=== PATIENT | female | born 1965 | race Caucasian/White ===

== ENCOUNTER 2018-10-19 17:30 | Emergency (ER) | payer OTHER, MEDICAID, SELFPAY ==
[2018-10-19 17:34] VITALS: BP 148/92; PULSE 89; RESP 19; TEMP 36.7; O2SAT 98
[2018-10-19] MEDS: IBUPROFEN 400 MG TABLET 800 MG PO (17:41)
[2018-10-19] MEDS: ACETAMINOPHEN 325 MG TABLET 975 MG PO (17:41)
--- NOTE | 2018-10-19 17:45 | DI.RAD.S_ITS ---
PROCEDURE: XR HIP W PEL IF DONE LT 2V INDICATIONS: atraumatic pain TECHNIQUE: 2 views of the hip were acquired. COMPARISON: None. FINDINGS: Bones: No fractures or dislocations. No suspicious bony lesions. The visualized pelvic ring appears intact. Minimal degenerative narrowing of the hips bilaterally. Soft tissues: No suspicious soft tissue calcifications or masses. There is a metallic density overlying the medial aspect of the left acetabulum. IMPRESSION: 1. Mild degenerative changes. 2. Metallic density appearing similar to a hair clip, overlying the left acetabulum suspected to be superficial to the patient. However, technologist notes that it was not able to be identified. Recommend correlation of potential ingested foreign body and/or short interval imaging x-ray followup. Dictated by: Madonna Willingham M.D. on 10/19/2018 at 18:43 Approved by: Madonna Willingham M.D. on 10/19/2018 at 18:44
--- NOTE | 2018-10-19 20:01 | ED_ITS ---
HPI - Extremity Problem <KAREN BurgessP - Last Filed: 10/19/18 22:30> General Chief complaint: Extremity Problem,Nontraumatic Stated complaint: Hip is out, in a lot of pain Time Seen by Provider: 10/19/18 18:13 Source: patient Mode of arrival: ambulatory Limitations: no limitations History of Present Illness HPI Narrative: This is a 53-year-old female, nonsmoker, who presents with non- traumatic left groin and hip pain for last 3 days. She reports pain aggravates with movements or walking. She reports she has had left-sided low back pain for 2 weeks which radiated to upper and lower of her lower back. She has been seeing chiropractor for adjustments, she was told her hip is out of place and referred to ED for an evaluation today. She has been walking with limping gait due to increasing pain with ambulation. She denies incontinence, weakness to extremities. She reports mild tingling and numbness when she stands too long. She reports her low back pain is now localized without radiation. She denies urinary symptoms including urgency, frequency, dysuria. She denies fever, chills, nausea, vomiting, redness or warmth to her back. Related Data Allergies Allergy/AdvReac Type Severity Reaction Status Date / Time No Known Drug Allergies Allergy Verified 10/19/18 17:37 Review of Systems <KAREN BurgessP - Last Filed: 10/19/18 22:30> Review of Systems General: Denies fever, chills, fatigue, malaise, sweats. HEENT: Denies sinus pain, ear pain, sore throat, difficulty swallowing, dizziness. Respiratory: Denies dyspnea, cough, wheezing, hemoptysis, sputum. Cardiovascular: Denies chest pain, palpitations, orthopnea, edema. Gastrointestinal: Denies nausea, vomiting, abdominal pain, diarrhea, constipation, melena. : Denies dysuria, frequency, incontinence, hematuria, urinary retention. Musculoskeletal: See HPI Skin: Denies rash, skin lesions, or other. Neurologic: Denies weakness, headache, numbness, change in speech, confusion, seizures, incoordination. Psychiatric: No concerning psychosocial issues. 12-point review of systems is negative except for those stated above. PFSH <KAREN BurgessP - Last Filed: 10/19/18 22:30> Medical History Migraine headache (Chronic) History of CHF (congestive heart failure) (Resolved) Surgical History History of 3 sections (Chronic) Hx of breast reduction, elective (Resolved) Social History Smoking Status: Never smoker Social History Smoking Status: Never smoker Exam <BONILLA Burgess - Last Filed: 10/19/18 22:30> Narrative Exam Narrative: General appearance: well developed, well nourished, in no acute distress. Head: normocephalic, atraumatic, no scalp lesions, non-tender. Eye: pupil equal, round. EOMI. Nose: nares patent. Oral: mucosa moist. Neck/Thyroid: neck supple, full range of motion, no visible masses. Skin: no suspicious rashes, lesions over visible areas. Warm and dry. Heart: no clubbing, no cyanosis, no edema. Lungs: Breathing even and unlabored. No stridor. No accessory muscles used. Chest: normal shape and expansion. Abdomen: non-obese, non-distended. Neurologic: alert and oriented. Cognitive exam, [employer] and PNS grossly intact on informal exam. Psych: good eye contact, normal affect. Initial Vital Signs Initial Vital Signs: Vital Signs Temperature 98.1 F 10/19/18 17:34 Pulse Rate 89 10/19/18 17:34 Respiratory Rate 19 10/19/18 17:34 Blood Pressure 148/92 H 10/19/18 17:34 Pulse Oximetry 98 10/19/18 17:34 Back/Spine/Pelvis Back: normal to inspection Cervical Spine: normal cervical lordosis and cervical ROM normal Thoracic/Lumbar Spine: thoracic and lumbar spine normal to inspection, paraspinal tenderness (L side), No thoraco-lumbar spasm and straight leg raise positive Sacroiliac Joints: tender to palpation, No pain elicited by compression of iliac crest maneuver and pain elicited by passive hyperextension of lower extremity Sacrum: no ecchymosis, no erythema, no swelling and tenderness (with movement, ambulation) on the left Other: Bilateral patella 2+ reflex <Milton Lawson DO - Last Filed: 10/20/18 05:10> Initial Vital Signs Initial Vital Signs: Vital Signs Temperature 98.1 F 10/19/18 17:34 Pulse Rate 89 10/19/18 17:34 Respiratory Rate 19 10/19/18 17:34 Blood Pressure 148/92 H 10/19/18 17:34 Pulse Oximetry 98 10/19/18 17:34 Procedures <BONILLA Burgess - Last Filed: 10/19/18 22:30> Orthopedic Splinting/Casting Injury #1: Side: left Other Orthopedic Equipment: cane Additional Comments: No splint has applied for L groin pain. Course <BONILLA Burgess - Last Filed: 10/19/18 22:30> Orders Ordered: ED Orders 10/19/18 20:37 Urine Culture Stat Urine Microscopic Stat Discontinued Medications Acetaminophen (Tylenol) 975 mg PO NOW ONE Stop: 10/19/18 17:38 Last Admin: 10/19/18 17:41 Dose: 975 mg Cyclobenzaprine HCl (Flexeril) 10 mg PO NOW ONE Stop: 10/19/18 20:02 Last Admin: 10/19/18 20:12 Dose: 10 mg Cyclobenzaprine HCl (Flexeril 10 Mg Prepack) 1 bottle MISC SEEINSTR ONE Stop: 10/19/18 20:50 Last Admin: 10/19/18 21:04 Dose: 1 bottle Ibuprofen (Advil) 800 mg PO NOW ONE Stop: 10/19/18 17:38 Last Admin: 10/19/18 17:41 Dose: 800 mg Vital Signs - 8 hr 10/19/18 21:25 Pulse Rate 86 Respiratory Rate 16 Blood Pressure [Left Arm] 156/75 H <Milton Lawson DO - Last Filed: 10/20/18 05:10> Orders Ordered: ED Orders 10/19/18 20:37 Urine Culture Stat Urine Microscopic Stat Discontinued Medications Acetaminophen (Tylenol) 975 mg PO NOW ONE Stop: 10/19/18 17:38 Last Admin: 10/19/18 17:41 Dose: 975 mg Cyclobenzaprine HCl (Flexeril) 10 mg PO NOW ONE Stop: 10/19/18 20:02 Last Admin: 10/19/18 20:12 Dose: 10 mg Cyclobenzaprine HCl (Flexeril 10 Mg Prepack) 1 bottle MISC SEEINSTR ONE Stop: 10/19/18 20:50 Last Admin: 10/19/18 21:04 Dose: 1 bottle Ibuprofen (Advil) 800 mg PO NOW ONE Stop: 10/19/18 17:38 Last Admin: 10/19/18 17:41 Dose: 800 mg Vital Signs - 8 hr 10/19/18 21:25 Pulse Rate 86 Respiratory Rate 16 Blood Pressure [Left Arm] 156/75 H MDM - Extremity (Nontraumatic) <Oscar Ellison-BONILLA Rodas - Last Filed: 10/19/18 22:30> Differential Diagnosis Likely other (groin strain, sciatica) Medical Records Attestation: I reviewed the patient's medical records. Lab Data Lab Results 10/19/18 Range/Units 20:37 Urine RBC None seen (0-5/HPF) Urine WBC 1-5/hpf (0-5/HPF) Ur Squamous Epith Cells 1-5 /hpf (0-5/HPF) Urine Bacteria Few (2-10) H (None) Ur Culture Indicated? Specimen cultured Urine Dip Bedside Urine Glucose Negative Bedside Urine Bilirubin + 1 Bedside Urine Ketone +/- 5 Urine Specific [place] 1.020 Bedside Urine Occult Blood - Negative Bedside Urine pH 6.5 Bedside Urine Protein +/- 15 Bedside Urine Urobilinogen +/- 1mg Bedside Urine Nitrite - Negative Bedside Urine Leukocytes +++ 500 Esterase Imaging Data XR-Hip L: Radiologist's impression: Mike Tatearia Saldana 53 F 1965 [place] [address] XRay Report Signed Patient: Carolina Tate Jo MMR#: [id number] : 1965Acct:[id number] Age/Sex: 53 / FDate of Service: 10/19/18 Loc: ED Accession Number: [id number] Procedure: XR hip w pel if done LT 2V Ordering Provider: Virgen Richey MD PROCEDURE: XR HIP W PEL IF DONE LT 2V INDICATIONS: atraumatic pain TECHNIQUE: 2 views of the hip were acquired. COMPARISON: None. FINDINGS: Bones: No fractures or dislocations. No suspicious bony lesions. The visualized pelvic ring appears intact. Minimal degenerative narrowing of the hips bilaterally. Soft tissues: No suspicious soft tissue calcifications or masses. There is a metallic density overlying the medial aspect of the left acetabulum. IMPRESSION: 1. Mild degenerative changes. 2. Metallic density appearing similar to a hair clip, overlying the left acetabulum suspected to be superficial to the patient. However, technologist notes that it was not able to be identified. Recommend correlation of potential ingested foreign body and/or short interval imaging x-ray followup. Dictated by: Madonna Willingham M.D. on 10/19/2018 at 18:43 Approved by: Madonna Willingham M.D. on 10/19/2018 at 18:44 [facility] Narrative Medical decision making narrative: This is a 53-year-old female who presents with nontraumatic left groin pain for last 3 days. She reports pain increases with ambulation or movement. She has been limping with dilation for last couple of weeks due to the low back pain she has been having. Her neurovascular exam was normal. Her lower leg extremity strength was bilaterally intact. There was no obvious deformity, edema, redness to left groin or leg. X-ray test was done on left hip which shows no acute findings. She was medicated with Tylenol and Motrin at triage. She also received additional Flexeril after she was ev aluated. She reports her pain has improved. She was provided with a cane to help with ambulation. We discussed return precautions at length. Her urine test shows leukoesterase, no blood per POC test. Micro urine test shows few bacteria and is being cultured at this time. She did not endorse urinary symptoms at this time. Patient was informed that she will be contacted if she needs antibiotic treatment for this. She was discharged to home with prepack Flexeril. She verbalized understanding and agrees with the treatment plan. <Milton Lawson, DO - Last Filed: 10/20/18 05:10> Lab Data Lab Results 10/19/18 Range/Units 20:37 Urine RBC None seen (0-5/HPF) Urine WBC 1-5/hpf (0-5/HPF) Ur Squamous Epith Cells 1-5 /hpf (0-5/HPF) Urine Bacteria Few (2-10) H (None) Ur Culture Indicated? Specimen cultured Urine Dip Bedside Urine Glucose Negative Bedside Urine Bilirubin + 1 Bedside Urine Ketone +/- 5 Urine Specific [place] 1.020 Bedside Urine Occult Blood - Negative Bedside Urine pH 6.5 Bedside Urine Protein +/- 15 Bedside Urine Urobilinogen +/- 1mg Bedside Urine Nitrite - Negative Bedside Urine Leukocytes +++ 500 Esterase Discharge Plan Departure Patient Disposition: Home Clinical Impression: Groin strain Qualifiers: Encounter type: initial encounter Laterality: left Qualified Code(s): S76.212A - Strain of adductor muscle, fascia and tendon of left thigh, initial encounter Sciatica Qualifiers: Laterality: left Qualified Code(s): M54.32 - Sciatica, left side Discharge Date/Time: 10/19/18 22:05 Interventions: ED Discharge Assessment Last Done: 10/19/18 22:05 Instructions: DI for Sciatica, DI for Groin Strain Activity Restrictions/Additional Instructions: You have been diagnosed with [groin strain, sciatica]. X-ray test shows no acute findings such as fractures. You are provided with a cane for ambulation support for acute pain in her groin area. Your urine test shows a few bacteria and it is being cultured at this time. It shows possible suspicion for infection. You will get a phone call if you need a treatment with antibiotic medication. What to do: *Take your medications as directed. He can take [id number] Tylenol and or Motrin for pain and inflammation. Please take Flexeril for muscle relaxant as needed. This may cause drowsiness so please take precaution. Do not drive, drink alcohol, or operate heavy equipments. *Follow up with your primary care provider in 2-3 days, call for an appointment. Let them know you were seen in the ED and that we asked you to be seen in follow up. *Return to ED if you have any new, worsening, or concerning symptoms, such as [worsening pain, tingling numbness, incontinence, weakness to leans, chest pain, breathing difficulty, any acute findings]. Referrals: Kayode Arriaza MD [Primary Care Provider] - <Milton Lawson DO - Last Filed: 10/20/18 05:10> [facility] ED Attending Aye Attestation: I was immediately available in the department for consultation. Documentation has been reviewed. I agree with assessment and plan.
[2018-10-19] MEDS: CYCLOBENZAPRINE 10 MG TABLET PO (20:12)
[2018-10-19] MEDS: CYCLOBENZAPRINE 10 MG PREPACK 1 BOTTLE MISC (21:04)
[2018-10-19 21:25] VITALS: BP 156/75; PULSE 86; RESP 16
[2018-10-22 08:37] LABS: Bacteria Urine Many (>30); RBC Urine 0-1/HPF (0-5/HPF); Squamous Epithelial Cell Urine 1-5 /HPF (0-5/HPF); WBC Urine 1-5/HPF (0-5/HPF)
[2018-10-22 08:38] LABS: Calcium Oxalate Crystals Urine Few
== END 2018-10-19 22:05 | disposition home or self-care (01) ==
PROVIDERS: Emergency Provider Nurse Practitioner Family; PCP Family Medicine
DX: S76.212A Strain of adductor muscle, fascia and tendon of left thigh, initial encounter (principal); M54.32 Sciatica, left side
CPT/HCPCS: 73502; 81003; 81015; 87077; 87086; 99282; 99284

== ENCOUNTER 2019-04-14 11:10 | Emergency (ER) | payer OTHER, MEDICAID, SELFPAY ==
[2019-04-14] VITALS (7 sets, daily range): BP systolic 123–132; BP diastolic 69–82; PULSE 78–96; RESP 14–22; TEMP 36.7; O2SAT 98–100
--- NOTE | 2019-04-14 12:10 | DI.RAD.S_ITS ---
PROCEDURE: XR CHEST 2V INDICATIONS: chest pain, SOB TECHNIQUE: 2 views of the chest were acquired. COMPARISON: None. FINDINGS: Surgical changes and devices: None. Lungs and pleura: Lungs are clear. No pleural effusions or pneumothorax. Mediastinum: Mediastinal contours are normal. Heart size is normal. Bones and chest wall: No suspicious bony abnormalities. Soft tissues appear unremarkable. IMPRESSION: No evidence acute pulmonary process. Dictated by: Chao Centeno M.D. on 04/14/2019 at 12:56 Approved by: Chao Centeno M.D. on 04/14/2019 at 12:57
[2019-04-14 12:18] LABS: Add Manual Diff / Slide Review NO; Basophils Absolute Auto 200 /uL (0-100); Basophils Percent Auto 0.8 % (0-2); Eosinophils Absolute Auto 200 /uL (0-450); Eosinophils Percent Auto 0.7 % (2-4); Hematocrit 33.5 % (36-46); Hemoglobin 10.3 g/dL (12.0-16.0); Lymphocytes Absolute Auto 6500 /uL (1100-4500); Mean Corpuscular HGB Conc 30.8 % (30-36); Mean Corpuscular Hemoglobin 20.1 PG (26-34); Mean Corpuscular Volume 65.2 fL (80-100); Monocytes Absolute Auto 2000 /uL (0-900); Neutrophils Absolute Auto 16300 /uL (1500-7000); Neutrophils Percent Auto 64.5 % (50-75); Platelet Count 509 X10^3/uL (150-400); Red Blood Cell Count 5.14 X10^6/uL (4.0-5.2); Red Cell Distribution Width 18.5 % (11.6-14.8); White Blood Cell Count 25.2 X10^3/uL (4.5-11.0)
[2019-04-14 12:23] LABS: Creatine Kinase 45 U/L (30-135)
[2019-04-14 12:24] LABS: Alanine Aminotransferase 28 IU/L (<35); Albumin Globulin Ratio 1.1 (1.0-2.8); Alkaline Phosphatase 88 U/L (38-126); Aspartate Aminotransferase 25 IU/L (14-36); Bilirubin Total 0.3 mg/dL (0.2-1.3); Blood Urea Nitrogen 20 mg/dL (7-17); Calcium 9.5 mg/dL (8.4-10.2); Carbon Dioxide 26 mmol/L (22-32); Chloride 100 mmol/L (98-107); Estimated Glomerular Filt Rate > 60.0 mL/min (>60); Globulin 3.7 g/dL (1.7-4.1); Glucose 97 mg/dL (70-100); HEMOLYSIS < 15 (0-50); Potassium 3.8 mmol/L (3.4-5.1); Sodium 138 mmol/L (137-145); Total Protein 7.7 g/dL (6.3-8.2)
[2019-04-14 12:29] LABS: D Dimer 279 ng/mL (<230)
[2019-04-14 12:36] LABS: NT-proBNP (BNP-Adult 18+) 108 pg/mL (<125); Troponin I < 0.012 ng/mL (0.01-0.034)
[2019-04-14 12:43] LABS: Hypochromasia 2+; Microcytosis 3+; Poikilocytosis 1+
[2019-04-14] MEDS: ALBUTEROL/IPRATROPIUM 3 ML AMPUL INH (12:47)
[2019-04-14 14:00] LABS: Procalcitonin < 0.05 ng/mL (<0.5)
[2019-04-14 14:15] LABS: Lactate (Lactic Acid) 1.9 mmol/L (0.7-2.1)
--- NOTE | 2019-04-14 14:22 | ED_ITS ---
HPI - Chest Pain <BONILLA Burgess - Last Filed: 04/15/19 00:01> General Chief Complaint: Chest Pain Stated Complaint: CHEST IS HURTING CAN HARDLY WALK CHEST TIGHT Time Seen by Provider: 04/14/19 11:54 Source: patient and family Mode of arrival: Ambulatory Limitations: no limitations History of Present Illness HPI narrative: This is a 54-year-old female, nonsmoker, who has history of asthma presents to ED with significant other with chief complain of worsening cough, exertional short of breath, fatigue, chest tightness and dizziness since this has started about 4 weeks ago. Reports was diagnosed with bronchitis and pneumonia 4 weeks ago and was prescribed doxycycline b.i.d. dose for 10 day course with steroids. She has been using her albuterol nebulizer and inhaler for short of breath. Patient reports she was not feeling improved and visited [facility] ER 5 days ago and was prescribed another course of antibiotic medication Keflex 500 mg t.i.d. dose for 7 days and Decadron p.o. for 7 day course daily. Patient has been using frequently nebulizer treatment and rescue inhaler at home for her symptoms. Patient has been very tired, exhausted and weak that she had to take several breaks while even trying to dry her hair several times and improves with rest. Patient's spouse reports patient has difficulty completing long sentences due to short of breath. Patient states she has history of CHF after she gave to her son 11 years ago but this has resolved last 7 years. Patient reports her discomfort in mid chest which radiates to right shoulder. Her cough has been productive when she wakes up in the morning. She denies nausea, vomiting, diarrhea and reports subjective fever and chills. Patient denies recent weight gain, or leg swellings, recent prolonged travel. She is not currently on HRT. Spouse reports patient's younger brother from heart failure at young age. Related Data Previous Rx's Medication Instructions Recorded ferrous sulfate [FeroSul] 325 mg PO DAILY #30 tab 04/14/19 ipratropium bromide 2.5 ml INHALATION TID PRN #75 ml 04/14/19 Allergies Allergy/AdvReac Type Severity Reaction Status Date / Time No Known Drug Allergies Allergy Verified 10/19/18 17:37 Review of Systems <BONILLA Burgess - Last Filed: 04/15/19 00:01> Review of Systems Narrative: General: Denies (+) subjective fever, (+) chills, (+) fatigue, malaise, (+) sweats. HEENT: Denies sinus pain, ear pain, sore throat, difficulty swallowing, dizziness. Respiratory: See HPI Cardiovascular: Denies (+) chest pain, palpitations, orthopnea, edema. Gastrointestinal: Denies nausea, vomiting, abdominal pain, diarrhea, constip ation, melena. : Denies dysuria, frequency, incontinence, hematuria, urinary retention. Musculoskeletal: Denies weakness, joint pain or bony pain. Skin: Denies rash, skin lesions, or other. Neurologic: Denies (+) weakness, headache, numbness, change in speech, confusion, seizures, incoordination. Psychiatric: No concerning psychosocial issues. 12-point review of systems is negative except for those stated above. Patient History <BONILLA Burgess - Last Filed: 04/15/19 00:01> Medical History History of CHF (congestive heart failure) (Resolved) Migraine headache (Chronic) Surgical History History of 3 sections (Chronic) History of section (Acute) History of nasal surgery (Acute) Hx of breast reduction, elective (Resolved) Status post breast reduction (Acute) Social History Smoking Status: Never smoker Smoking Status: Never smoker alcohol intake frequency: 0-2 drinks per day Substance Use Type: does not use Exam <BONILLA Burgess - Last Filed: 04/15/19 00:01> Narrative Exam Narrative: GEN: Alert, oriented x 3, well appearing and nourished, and in no acute distress. Head: Normal cephalic, atraumatic. No scalp or temporal tenderness, palpable mass or rash. EYES: Pupils are equal, round, and reactive to light and accommodation. Extraocular muscles are intact bilaterally. There is no subconjunctival hemorrhage, exudate and sclera non-icteric. ENT: Bilateral auditory canals and tympanic membranes clear. Hearing grossly intact. Nose without bleeding, purulent discharge or deviation. Facial sinuses nontender to palpate. Mucous membrane moist, no mucosal lesion. Throat without erythema, tonsillar hypertrophy or exudate. Uvula in midline, airway patent. Neck: Trachea in midline. No JVD, non-tender without lymphadenopathy. No masses or thyroid megaly. Supple, non-tender and no meningeal signs. CARDIAC: Normal regular rate and rhythm without murmurs, gallops, or rubs. No chest wall tenderness. No peripheral edema, cyanosis or pallor. Capillary refill is less than 2 seconds. RESPIRATORY: Lungs are clear to auscultate bilaterally. No cough, wheezes, r ales, or rhonchi. No stridor, respiratory distress, increase work of breathing, or accessary muscle used. ABD: Abdomen soft, nontender and non-distended. No guarding or rebound tenderness to palpate. Bowel sounds are normal in all 4 quadrants. There is no palpable masses or organomegaly. EXT: Full painless ROM of all extremities with no loss of sensation, strength, effusion or edema. SKIN: Warm, dry, normal color for patient. No erythema, lesions or rash over visible areas. BACK: Nontender without deformity or crepitance. No flank tenderness. NEUROLOGICAL: Alert and oriented to place, time and person. Sensation and motor function intact bilaterally. No facial droops, dysphasia. PSYCHIATRIC: Good judgement and reason, without hallucinations, abnormal affect or abnormal behaviors during the examination. Initial Vital Signs Initial Vital Signs: Vital Signs Temperature 98.1 F 04/14/19 11:30 Pulse Rate 88 04/14/19 11:30 Respiratory Rate 22 04/14/19 11:30 Blood Pressure 132/75 04/14/19 11:30 Pulse Oximetry 98 04/14/19 11:30 <Odette Ball DO - Last Filed: 04/15/19 14:38> Initial Vital Signs Initial Vital Signs: Vital Signs Temperature 98.1 F 04/14/19 11:30 Pulse Rate 88 04/14/19 11:30 Respiratory Rate 22 04/14/19 11:30 Blood Pressure 132/75 04/14/19 11:30 Pulse Oximetry 98 04/14/19 11:30 Scores <Oscar Terra-BONILLA Rodas - Last Filed: 04/15/19 00:01> GCS Janet coma scale eye opening: Spontaneous Forney coma scale verbal response: Orientated Janet coma scale motor response: Obey commands Forney coma scale total score: 15 HEART Score Heart Score history: Slightly Suspicious Heart Score EKG: Normal Heart Score Age: 45-64 years old Heart Score risk factors: 1-2 risk factors Heart Score troponin: < or = to normal limit Heart Score Total: 2 PERC Score Age greater than or equal to 50 years: Yes Heart rate greater than or equal to 100 bpm: No Room Air O2 Sat less than 95%: No Unilateral leg swelling: No Recent trauma or surgery: No Hemoptysis: No Prior PE or DVT: No Hormone Use: No Total PERC Score: 1 Course <BONILLA Burgess - Last Filed: 04/15/19 00:01> Orders Ordered: Discontinued Medications Albuterol/Ipratropium (Duoneb) 3 ml INH NOW ONE Stop: 04/14/19 12:10 Last Admin: 04/14/19 12:47 Dose: 3 ml Documented by: GENA Ketorolac Tromethamine (Toradol) 30 mg IV NOW ONE Stop: 04/14/19 14:29 Last Admin: 04/14/19 15:00 Dose: Not Given Documented by: KDCHRISTINA Vital Signs Vital signs: Vital Signs - 8 hr 04/14/19 11:30 04/14/19 12:01 04/14/19 12:30 Temperature 98.1 F 98.1 F Pulse Rate 88 88 88 Respiratory Rate 22 22 18 Blood Pressure [Left Arm] 132/75 124/76 Pulse Oximetry 98 98 99 04/14/19 12:47 04/14/19 12:58 04/14/19 13:00 Temperature Pulse Rate 78 80 85 Respiratory Rate 14 18 19 Blood Pressure [Left Arm] 123/69 130/72 Pulse Oximetry 98 98 100 <Odette Ball DO - Last Filed: 04/15/19 14:38> Orders Ordered: Discontinued Medications Albuterol/Ipratropium (Duoneb) 3 ml INH NOW ONE Stop: 04/14/19 12:10 Last Admin: 04/14/19 12:47 Dose: 3 ml Documented by: GENA Ketorolac Tromethamine (Toradol) 30 mg IV NOW ONE Stop: 04/14/19 14:29 Last Admin: 04/14/19 15:00 Dose: Not Given Documented by: HILARIA Vital Signs Vital signs: Vital Signs - 8 hr 04/14/19 11:30 04/14/19 12:01 04/14/19 12:30 Temperature 98.1 F 98.1 F Pulse Rate 88 88 88 Respiratory Rate 22 22 18 Blood Pressure [Left Arm] 132/75 124/76 Pulse Oximetry 98 98 99 04/14/19 12:47 04/14/19 12:58 04/14/19 13:00 Temperature Pulse Rate 78 80 85 Respiratory Rate 14 18 19 Blood Pressure [Left Arm] 123/69 130/72 Pulse Oximetry 98 98 100 MDM - Chest Pain <Oscar BONILLA Elmore - Last Filed: 04/15/19 00:01> Differential Diagnosis Differential diagnosis: Likely atypical chest pain, costochondritis and other (Bronchitis, pneumonia, pneumothorax, heart failure, pulmonary embolism) Medical Records Data Attestation: I reviewed the patient's medical records. Lab Data Attestation: I reviewed the patient's lab results. Result diagrams: 04/14/19 11:58 04/14/19 11:58 Labs: Lab Results 04/14/19 04/14/19 04/14/19 Range/Units 11:58 11:58 11:58 WBC 25.2 H (4.5-11.0) X10^3/uL RBC 5.14 (4.0-5.2) X10^6/uL Hgb 10.3 L (12.0-16.0) g/dL Hct 33.5 L (36-46) % MCV 65.2 L (80-100) fL MCH 20.1 L (26-34) PG MCHC 30.8 (30-36) % RDW 18.5 H (11.6-14.8) % Plt Count 509 H (150-400) X10^3/uL Neut % (Auto) 64.5 (50-75) % Lymph % (Auto) 26.0 (25-40) % Gooding % (Auto) 8.0 (3-14) % Eos % (Auto) 0.7 L (2-4) % Baso % (Auto) 0.8 (0-2) % Neut # (Auto) 41562 H (1661-1725) /uL Lymph # (Auto) 6500 H (5900-8821) /uL Gooding # (Auto) 2000 H (0-900) /uL Eos # (Auto) 200 (0-450) /uL Baso # (Auto) 200 H (0-100) /uL RBC Morphology Not Reportable Hypochromasia 2+ H Poikilocytosis 1+ H Microcytosis 3+ H D-Dimer 279 H (<230) ng/mL Sodium (137-145) mmol/L Potassium (3.4-5.1) mmol/L Chloride (98-107) mmol/L Carbon Dioxide (22-32) mmol/L BUN (7-17) mg/dL Creatinine (0.52-1.04) mg/dL Estimated GFR (>60) mL/min BUN/Creatinine Ratio (6-22) Glucose (70-100) mg/dL Lactate (0.7-2.1) mmol/L Calcium (8.4-10.2) mg/dL Magnesium 2.0 (1.6-2.3) mg/dL Total Bilirubin (0.2-1.3) mg/dL AST (14-36) IU/L ALT (<35) IU/L Alkaline Phosphatase (38-126) U/L Total Creatine Kinase 45 (30-135) U/L CK-MB (CK-2) TNP CK-MB (CK-2) Rel Index TNP Troponin I < 0.012 (0.01-0.034) ng/mL NT-Pro-B Natriuret Pep 108 (<125) pg/mL Total Protein (6.3-8.2) g/dL Albumin (3.5-5.0) g/dL Globulin (1.7-4.1) g/dL Albumin/Globulin Ratio (1.0-2.8) Procalcitonin (<0.5) ng/mL 04/14/19 04/14/19 04/14/19 Range/Units 11:58 11:58 13:58 WBC (4.5-11.0) X10^3/uL RBC (4.0-5.2) X10^6/uL Hgb (12.0-16.0) g/dL Hct (36-46) % MCV (80-100) fL MCH (26-34) PG MCHC (30-36) % RDW (11.6-14.8) % Plt Count (150-400) X10^3/uL Neut % (Auto) (50-75) % Lymph % (Auto) (25-40) % Gooding % (Auto) (3-14) % Eos % (Auto) (2-4) % Baso % (Auto) (0-2) % Neut # (Auto) (1163-5154) /uL Lymph # (Auto) (6740-8537) /uL Gooding # (Auto) (0-900) /uL Eos # (Auto) (0-450) /uL Baso # (Auto) (0-100) /uL RBC Morphology Hypochromasia Poikilocytosis Microcytosis D-Dimer (<230) ng/mL Sodium 138 (137-145) mmol/L Potassium 3.8 (3.4-5.1) mmol/L Chloride 100 (98-107) mmol/L Carbon Dioxide 26 (22-32) mmol/L BUN 20 H (7-17) mg/dL Creatinine 0.80 (0.52-1.04) mg/dL Estimated GFR > 60.0 (>60) mL/min BUN/Creatinine Ratio 25.0 H (6-22) Glucose 97 (70-100) mg/dL Lactate 1.9 (0.7-2.1) mmol/L Calcium 9.5 (8.4-10.2) mg/dL Magnesium (1.6-2.3) mg/dL Total Bilirubin 0.3 (0.2-1.3) mg/dL AST 25 (14-36) IU/L ALT 28 (<35) IU/L Alkaline Phosphatase 88 (38-126) U/L Total Creatine Kinase (30-135) U/L CK-MB (CK-2) CK-MB (CK-2) Rel Index Troponin I (0.01-0.034) ng/mL NT-Pro-B Natriuret Pep (<125) pg/mL Total Protein 7.7 (6.3-8.2) g/dL Albumin 4.0 (3.5-5.0) g/dL Globulin 3.7 (1.7-4.1) g/dL Albumin/Globulin Ratio 1.1 (1.0-2.8) Procalcitonin < 0.05 (<0.5) ng/mL Imaging Data Chest x-ray: Radiologist's Impression: Carolina Tate 54 F [address] [address] XRay Report Signed Patient: Carolina Tate MMR#: [id number] : 1965Acct:[id number] Age/Sex: 54 / FDate of Service: 04/14/19 Loc: ED Accession Number: [id number] Procedure: XR chest 2V Ordering Provider: Oscar Elmore PROCEDURE: XR CHEST 2V INDICATIONS: chest pain, SOB TECHNIQUE: 2 views of the chest were acquired. COMPARISON: None. FINDINGS: Surgical changes and devices: None. Lungs and pleura: Lungs are clear. No pleural effusions or pneumothorax. Mediastinum: Mediastinal contours are normal. Heart size is normal. Bones and chest wall: No suspicious bony abnormalities. Soft tissues appear unremarkable. IMPRESSION: No evidence acute pulmonary process. Dictated by: Chao Centeno M.D. on 04/14/2019 at 12:56 Approved by: Chao Centeno M.D. on 04/14/2019 at 12:57 ECG Data Attestation: I personally reviewed and interpreted this ECG as follows: Interpretation: Sinus rhythm rate at 88. ME int 177, QRS duration normal, QT/QTC 355/[address] elevation or depression. MDM Narrative Medical decision making narrative: This is a 54 year old female who has history of asthma has been treated with doxycycline b.i.d. for 10 day course without much improvement and now is being treated with Keflex 500 mg t.i.d. for 7 day course without much improvement. Patient was evaluated in [facility] ER 5 days ago with chest x-ray which was negative for pneumonia. EKG was normal sinus rhythm without ST elevation or depression. Chest x-ray was again and negative for acute pulmonary disease. Given patient's history of CHF and exertional short of breath with fatigue, cardiac enzymes were obtained along BMP and D-dimer. D-dimer was negative for her age as 279. BNP and cardiac enzymes were negative. CBC showed significantly elevated WBC of 25.2 with increased neutrophil. Patient is nontoxic appearing with stable vital signs and afebrile. Procalcitonin and lactate were negative. Two blood cultures are pending. Patient's leukocytosis may likely due to patient being on steroids for 2 different courses. Also, patient's H&H was decreased as 10.3/33.5. Patient is exertional short of breath is likely also due to anemia. Patient was provided with DuoNeb while in ED which patient finds improved in her symptoms. Patient discharged to home with Atrovent and advised to use up to 3 times a day to gather with albuterol nebulizer. Patient advised to hydrate well and continue with supportive care. Given patient's symptoms were prolonged, 2nd set of cardiac enzyme was not drawn. Patient reports her symptoms have improved. Patient was able to tolerate fluids and food without nausea or vomiting while in ED. Return precautions were discussed with the patient and patient verbalized understanding with the treatment plan. <Odette Ball, DO - Last Filed: 04/15/19 14:38> Lab Data Labs: Lab Results 04/14/19 04/14/19 04/14/19 Range/Units 11:58 11:58 11:58 WBC 25.2 H (4.5-11.0) X10^3/uL RBC 5.14 (4.0-5.2) X10^6/uL Hgb 10.3 L (12.0-16.0) g/dL Hct 33.5 L (36-46) % MCV 65.2 L (80-100) fL MCH 20.1 L (26-34) PG MCHC 30.8 (30-36) % RDW 18.5 H (11.6-14.8) % Plt Count 509 H (150-400) X10^3/uL Neut % (Auto) 64.5 (50-75) % Lymph % (Auto) 26.0 (25-40) % Gooding % (Auto) 8.0 (3-14) % Eos % (Auto) 0.7 L (2-4) % Baso % (Auto) 0.8 (0-2) % Neut # (Auto) 90515 H (5611-2004) /uL Lymph # (Auto) 6500 H (1769-8108) /uL Gooding # (Auto) 2000 H (0-900) /uL Eos # (Auto) 200 (0-450) /uL Baso # (Auto) 200 H (0-100) /uL RBC Morphology Not Reportable Hypochromasia 2+ H Poikilocytosis 1+ H Microcytosis 3+ H D-Dimer 279 H (<230) ng/mL Sodium (137-145) mmol/L Potassium (3.4-5.1) mmol/L Chloride (98-107) mmol/L Carbon Dioxide (22-32) mmol/L BUN (7-17) mg/dL Creatinine (0.52-1.04) mg/dL Estimated GFR (>60) mL/min BUN/Creatinine Ratio (6-22) Glucose (70-100) mg/dL Lactate (0.7-2.1) mmol/L Calcium (8.4-10.2) mg/dL Magnesium 2.0 (1.6-2.3) mg/dL Total Bilirubin (0.2-1.3) mg/dL AST (14-36) IU/L ALT (<35) IU/L Alkaline Phosphatase (38-126) U/L Total Creatine Kinase 45 (30-135) U/L CK-MB (CK-2) TNP CK-MB (CK-2) Rel Index TNP Troponin I < 0.012 (0.01-0.034) ng/mL NT-Pro-B Natriuret Pep 108 (<125) pg/mL Total Protein (6.3-8.2) g/dL Albumin (3.5-5.0) g/dL Globulin (1.7-4.1) g/dL Albumin/Globulin Ratio (1.0-2.8) Procalcitonin (<0.5) ng/mL 04/14/19 04/14/19 04/14/19 Range/Units 11:58 11:58 13:58 WBC (4.5-11.0) X10^3/uL RBC (4.0-5.2) X10^6/uL Hgb (12.0-16.0) g/dL Hct (36-46) % MCV (80-100) fL MCH (26-34) PG MCHC (30-36) % RDW (11.6-14.8) % Plt Count (150-400) X10^3/uL Neut % (Auto) (50-75) % Lymph % (Auto) (25-40) % Gooding % (Auto) (3-14) % Eos % (Auto) (2-4) % Baso % (Auto) (0-2) % Neut # (Auto) (3228-9397) /uL Lymph # (Auto) (6181-7901) /uL Gooding # (Auto) (0-900) /uL Eos # (Auto) (0-450) /uL Baso # (Auto) (0-100) /uL RBC Morphology Hypochromasia Poikilocytosis Microcytosis D-Dimer (<230) ng/mL Sodium 138 (137-145) mmol/L Potassium 3.8 (3.4-5.1) mmol/L Chloride 100 (98-107) mmol/L Carbon Dioxide 26 (22-32) mmol/L BUN 20 H (7-17) mg/dL Creatinine 0.80 (0.52-1.04) mg/dL Estimated GFR > 60.0 (>60) mL/min BUN/Creatinine Ratio 25.0 H (6-22) Glucose 97 (70-100) mg/dL Lactate 1.9 (0.7-2.1) mmol/L Calcium 9.5 (8.4-10.2) mg/dL Magnesium (1.6-2.3) mg/dL Total Bilirubin 0.3 (0.2-1.3) mg/dL AST 25 (14-36) IU/L ALT 28 (<35) IU/L Alkaline Phosphatase 88 (38-126) U/L Total Creatine Kinase (30-135) U/L CK-MB (CK-2) CK-MB (CK-2) Rel Index Troponin I (0.01-0.034) ng/mL NT-Pro-B Natriuret Pep (<125) pg/mL Total Protein 7.7 (6.3-8.2) g/dL Albumin 4.0 (3.5-5.0) g/dL Globulin 3.7 (1.7-4.1) g/dL Albumin/Globulin Ratio 1.1 (1.0-2.8) Procalcitonin < 0.05 (<0.5) ng/mL Discharge Plan Departure Patient Disposition: Home Clinical Impression: Atypical chest pain, Bronchitis Anemia Qualifiers: Anemia type: unspecified type Qualified Code(s): D64.9 - Anemia, unspecified Discharge Date/Time: 04/14/19 15:07 Instructions: DI for Asthma -- Adult, DI for Acute Bronchitis, DI for Atypical Chest Pain Activity Restrictions/Additional Instructions: You have been diagnosed with [bronchitis, asthma exacerbation and atypical chest pain. EKG was sinus rhythm. Negative BNP and troponin today. Electrolytes were unremarkable. Your white count was elevated as 25.2 but there was no elevation in lactate or procalcitonin indicating severe infection. This may due to steroids that you been taking for last few weeks. You are anemic and H/H is 10.3/33.5. Your short of breath may due to this as well. Chest x-ray does not show any acute disease.]. What to do: *Take your medications as directed. I have transmitted Atrovent to [facility]. You can take every 8 hours as needed with albuterol for short of breath and wheezing through nebulizer. Please start taking iron pill for anemia. These to medication has been transmitted to [facility] in [place]. *Follow up with your primary care provider in 2-3 days, call for an appointment. Let them know you were seen in the ED and that we asked you to be seen in follow up for your symptoms with short of breath and anemia. *Return to ED if you have any new, worsening, or concerning symptoms, such as [chest pain, breathing difficulty, unable to tolerate fluids, high fever, or any acute concerns]. Prescriptions: New ipratropium bromide 0.02 % solution 2.5 ml INHALATION TID PRN (Reason: shortness of breath or wheezing) Qty: 75 RF: 0 ferrous sulfate [FeroSul] 325 mg (65 mg iron) tablet 325 mg PO DAILY Qty: 30 RF: 0 Referrals: Kayode Arriaza MD [Primary Care Provider] - Stand Alone Forms: Work Release Note
== END 2019-04-14 15:07 | disposition home or self-care (01) ==
PROVIDERS: Emergency Provider Nurse Practitioner Family; PCP Family Medicine
DX: R07.89 Other chest pain (principal); J40 Bronchitis, not specified as acute or chronic; D64.9 Anemia, unspecified; R79.89 Other specified abnormal findings of blood chemistry
CPT/HCPCS: 36415; 71046; 80053; 82550; 83605; 83735; 83880; 84145; 84484; 85025; 85379; 87040; 93005; 94150; 94640; 99284; 99285

== ENCOUNTER → 2019-04-28 12:53 | Outpatient (CLI) | payer OTHER, SELFPAY ==
--- NOTE | 2019-04-28 | DI.CT.S_ITS ---
PROCEDURE: CT CHEST W CON INDICATIONS: Dyspnea, unspecified TECHNIQUE: After the administration of intravenous contrast, 5 mm thick sections acquired from the pulmonary apices to the posterior costophrenic angles. 1 mm axial lung, 5 mm thick coronal and sagittal reformats and 7 mm axial MIP were acquired. For radiation dose reduction, the following was used: automated exposure control, adjustment of mA and/or kV according to patient size. COMPARISON: None. FINDINGS: Image quality: Excellent. Lungs and pleura: No acute air space opacities. No pleural effusions or pneumothorax. Central and peripheral airways are patent and normal in caliber. Mediastinum: Heart size is normal. No pericardial effusion. No mediastinal or hilar adenopathy by size criteria. Thoracic aorta and central pulmonary arteries are normal in size. Esophagus is normal in caliber. No hiatal hernia. Bones and chest wall: No suspicious bony lesions. No vertebral body compression fractures. No axillary or supraclavicular adenopathy by size criteria. Thyroid gland appears normal where well visualized. Abdomen: Visualized upper abdominal solid organs appear normal. Upper abdominal bowel loops are normal in caliber. IMPRESSION: No pulmonary embolus found, no pneumonia identified. By this examination a source of current dyspnea is not found. Dictated by: Tushar Maza M.D. on 04/28/2019 at 14:52 Approved by: Tushar Mzaa M.D. on 04/28/2019 at 14:54
== END ==
PROVIDERS: PCP Family Medicine; Referring Provider Family Medicine; Visit Provider Family Medicine
DX: R06.00 Dyspnea, unspecified (principal)
CPT/HCPCS: 71260; Q9967

== ENCOUNTER → 2019-09-10 14:09 | Outpatient (CLI) | payer OTHER, SELFPAY ==
[2019-09-10 14:41] LABS: Hematocrit 32.8 % (36-46); Hemoglobin 10.2 g/dL (12.0-16.0); Mean Corpuscular HGB Conc 31.2 % (30-36); Mean Corpuscular Hemoglobin 20.7 PG (26-34); Mean Corpuscular Volume 66.4 fL (80-100); Platelet Count 416 X10^3/uL (150-400); Red Blood Cell Count 4.94 X10^6/uL (4.0-5.2)
[2019-09-10 14:51] LABS: Cholesterol 209 mg/dL (140-199); HDL Cholesterol 40 mg/dL (40-60); LDL Cholesterol Calculated 141 mg/dL (<100); Triglycerides 140 mg/dL (35-150)
[2019-09-10 14:56] LABS: Reticulocyte Count, Percent 1.8 % (1.06-2.63)
== END ==
PROVIDERS: PCP Student in an Organized Health Care Education/Training Program; Referring Provider Student in an Organized Health Care Education/Training Program; Visit Provider Student in an Organized Health Care Education/Training Program
DX: D64.9 Anemia, unspecified (principal); Z13.220 Encounter for screening for lipoid disorders
CPT/HCPCS: 36415; 80061; 85027; 85045

== ENCOUNTER 2020-01-24 13:30 | Emergency (ER) | payer OTHER, MEDICAID, SELFPAY ==
[2020-01-24 13:34] VITALS: BP 123/60; PULSE 95; RESP 22; TEMP 36.9; O2SAT 98
[2020-01-24 14:12] LABS: COVID19 -Nasal RAPID Negative (Negative)
[2020-01-24 15:40] VITALS: BP 126/87; PULSE 78; RESP 18; O2SAT 100
[2020-01-24 15:41] VITALS: TEMP 37.1
--- NOTE | 2020-01-24 18:34 | ED_ITS ---
HPI - URI/Sore Throat <BONILLA Louise - Last Filed: 01/24/20 19:48> General Chief Complaint: Upper Respiratory Symptoms Stated Complaint: Bronhitis, SOB, Tired, Fever Time Seen by Provider: 01/24/20 15:01 Source: patient Mode of arrival: Ambulatory History of Present Illness HPI Narrative: 54yo female with a history of bronchitis and asthma, presents to the ED for cough and increased inhaler use. She states she has been using her inhaler due to increasing asthma symptoms and cough. She states she usually gets bronchitis a few times during the year. She states this feels very similar. She states she has gotten very chilled especially when the prior when out of and she developed worsening chest congestion and cough. She denies any other symptoms such as rhinorrhea, ear pain, nausea, vomiting, diarrhea, chest pain, or any other concerns. She states she has had prednisone for episodes like these in the past which improves her symptoms. Related Data Home Medications Medication Instructions Recorded Confirmed albuterol sulfate 90 mcg/actuation 2 puff INHALATION Q6H PRN 09/10/19 10/21/19 aerosol inhaler Previous Rx's Medication Instructions Recorded ferrous sulfate [FeroSul] 325 mg PO DAILY #30 tab 04/14/19 sumatriptan succinate 25 mg tablet See Rx Instructions PO .COMPLEX 10/07/19 #10 tab albuterol sulfate 2 puff INHALATION Q4-6H PRN #8.5 g 01/24/20 prednisone 50 mg PO DAILY 5 Days #5 tab 01/24/20 Allergies Allergy/AdvReac Type Severity Reaction Status Date / Time No Known Drug Allergies Allergy Verified 10/21/19 10:22 Review of Systems <BONILLA Louise - Last Filed: 01/24/20 19:48> Review of Systems Narrative: REVIEW OF SYSTEMS: GENERAL: Denies fevers. HENT: No head trauma. CARDIOVASCULAR: No chest pain or syncope. RESPIRATORY: Complains of cough, see HPI. GASTROINTESTINAL: No nausea or vomiting. MUSCULOSKELETAL: No weakness or injury. INTEGUMENTARY: No rash. Patient History <BONILLA Louise - Last Filed: 01/24/20 19:48> Medical History History of CHF (congestive heart failure) Migraine headache Surgical History History of 3 sections History of section History of nasal surgery Hx of breast reduction, elective Status post breast reduction Social History Smoking Status: Never smoker Smoking Status: Never smoker alcohol intake frequency: 0-2 drinks per day Substance Use Type: does not use Exam <BONILLA Louise - Last Filed: 01/24/20 19:48> Initial Vital Signs Initial Vital Signs: Vital Signs Temperature 98.4 F 01/24/20 13:34 Pulse Rate 95 H 01/24/20 13:34 Respiratory Rate 22 01/24/20 13:34 Blood Pressure 123/60 01/24/20 13:34 Pulse Oximetry 98 01/24/20 13:34 PHYSICAL EXAMINATION: GENERAL: Well groomed, alert, and cooperative. Answers questions promptly and appropriately. Vital signs noted. HENT: Normocephalic, atraumatic. EYES: Conjunctiva pink, sclera white, no periorbital swelling. No discharge. CHEST: Normal to inspection and without deformities. CARDIOVASCULAR: S1 and S2 sounds normal. Regular rate and rhythm, no murmurs, clicks, or bruits. RESPIRATORY: Normal respiratory rate, trachea midline, airway patent. No stridor, nasal flaring or accessory muscle use. Able to speak in full sentences. Lungs clear without rhonchi, crackles, or wheezes. Dry cough heard throughout examination. MUSCULOSKELETAL: Normal gait and coordination. Equal tone and mass bilaterally. EXTREMITIES: Moves all extremities. SKIN: Warm, dry, soft, appropriate color for ethnicity. No lesions, rashes, or wounds to visualized areas. NEURO: Alert and Oriented X 3. Good coordination. No ataxia or cognitive issues. PSYCH: Appropriate affect and mood. <Odette Ball DO - Last Filed: 01/25/20 19:19> Initial Vital Signs Initial Vital Signs: Vital Signs Temperature 98.4 F 01/24/20 13:34 Pulse Rate 95 H 01/24/20 13:34 Respiratory Rate 22 01/24/20 13:34 Blood Pressure 123/60 01/24/20 13:34 Pulse Oximetry 98 01/24/20 13:34 Course <BONILLA Louise - Last Filed: 01/24/20 19:48> Orders Ordered: ED Orders 01/24/20 13:43 COVID19 Stat Vital Signs Vital signs: Vital Signs - 8 hr 01/24/20 13:34 01/24/20 15:40 01/24/20 15:41 Temperature 98.4 F 98.7 F Pulse Rate 95 H 78 Respiratory Rate 22 18 Blood Pressure 123/60 126/87 Pulse Oximetry 98 100 <Odette Ball DO - Last Filed: 01/25/20 19:19> Orders Ordered: ED Orders 01/24/20 13:43 COVID19 Stat Vital Signs Vital signs: Vital Signs - 8 hr 01/24/20 13:34 01/24/20 15:40 01/24/20 15:41 Temperature 98.4 F 98.7 F Pulse Rate 95 H 78 Respiratory Rate 22 18 Blood Pressure 123/60 126/87 Pulse Oximetry 98 100 MDM - URI/Sore Throat <BONILLA Louise - Last Filed: 01/24/20 19:48> Medical Records Attestation: I reviewed the patient's medical records. Lab Data Attestation: I reviewed the patient's lab results. Labs: Lab Results 01/24/20 Range/Units 13:43 COVID-19 PCR Negative (Negative) MDM Narrative Medical decision making narrative: 54yo female with a history of asthma, presents emergency department for increasing cough over the past week. She stat es this feels like a bronchitis episode. I suspect patient's symptoms are most likely caused by as an asthma exacerbation. Patient given 19 test is negative. Less concern for pneumonia given clear lung examination, non tachycardic, afebrile, non tachypneic, hemodynamically stable. She was given prednisone to help with the asthma exacerbation. We discussed there is no need for antibiotics at this time given short duration since onset of symptoms. However we discussed importance of follow-up in the next 1-2 weeks for further evaluation if symptoms continue. Return precautions given for new or worsening symptoms. Patient agreed to plan of care and verbalized understanding. <Odette Ball DO - Last Filed: 01/25/20 19:19> Lab Data Labs: Lab Results 01/24/20 Range/Units 13:43 COVID-19 PCR Negative (Negative) Discharge Plan Departure Patient Disposition: Home Clinical Impression: Asthma exacerbation Qualifiers: Asthma severity: moderate Asthma persistence: persistent Qualified Code(s): J45.41 - Moderate persistent asthma with (acute) exacerbation Acute bronchitis Qualifiers: Bronchitis organism: unspecified organism Qualified Code(s): J20.9 - Acute bronchitis, unspecified Instructions: DI for Bronchiolitis Activity Restrictions/Additional Instructions: Thank you for entrusting me with your care today. As discussed, your COVID test is negative. I suspect her symptoms are most likely caused by a virus and an asthma exacerbation. I have prescribed you prednisone to help with her symptoms and refilled your albuterol inhaler. RX sent to [facility] Please follow-up with your PCP and 1 to 2 weeks for further evaluation if her symptoms continue. Return emergency department for any new or worsening symptoms. Prescriptions: New prednisone 50 mg tablet 50 mg PO DAILY 5 Days Qty: 5 RF: 0 albuterol sulfate 90 mcg/actuation HFA aerosol inhaler 2 puff inhalation Q4-6H PRN (Reason: shortness of breath or wheezing) Qty: 8.5 RF: 0 No Action albuterol sulfate [ProAir HFA] 90 mcg/actuation HFA aerosol inhaler 2 puff INHALATION Q6H PRNRF: 0 sumatriptan succinate 25 mg tablet See Rx Instructions PO .COMPLEX Qty: 10 RF: 11 ferrous sulfate [FeroSul] 325 mg (65 mg iron) tablet 325 mg PO DAILY Qty: 30 RF: 0 Referrals: Hermelindo Koch MD [Primary Care Provider] - <Odette Ball DO - Last Filed: 01/25/20 19:19> Cosign ED Attending Cosignature Attestation: I was immediately available in the department for consultation. This documentation has been reviewed and I agree with assessment and plan. Supervised by Odette Ball DO
== END 2020-01-24 15:51 | disposition home or self-care (01) ==
PROVIDERS: Emergency Medicine; Emergency Provider Nurse Practitioner; PCP Student in an Organized Health Care Education/Training Program
DX: J45.41 Moderate persistent asthma with (acute) exacerbation (principal); J20.9 Acute bronchitis, unspecified
CPT/HCPCS: 87635; 99281; 99282

== ENCOUNTER → 2020-02-07 15:18 | Outpatient (CLI) | payer OTHER, MEDICAID, SELFPAY ==
[2020-02-07 15:58] LABS: COVID19 -Nasal RAPID Negative (Negative)
== END ==
PROVIDERS: PCP Student in an Organized Health Care Education/Training Program; Visit Provider Family Medicine
DX: J20.9 Acute bronchitis, unspecified (principal); J45.41 Moderate persistent asthma with (acute) exacerbation; Z11.8 Encounter for screening for other infectious and parasitic diseases; Z11.59 Encounter for screening for other viral diseases
CPT/HCPCS: 87635

== ENCOUNTER → 2020-02-07 17:21 | Outpatient (CLI) | payer OTHER, MEDICAID, SELFPAY ==
--- NOTE | 2020-02-07 17:23 | DI.RAD.S_ITS ---
PROCEDURE: XR CHEST 2V INDICATIONS: Persistent and progressive cough TECHNIQUE: 2 views of the chest were acquired. COMPARISON: , CT, CT CHEST W CON, 04/28/2019, 14:06. [facility], CT, CT ANGIO CHEST PE, 05/22/2015, 21:51. [facility], CR, XR CHEST 2VW, 05/22/2015, 16:41. , CR, XR CHEST 2V, 04/14/2019, 12:24. FINDINGS: Surgical changes and devices: None. Lungs and pleura: Lungs are clear. No pleural effusions or pneumothorax. Mediastinum: Mediastinal contours are normal. Heart size is normal. Bones and chest wall: No suspicious bony abnormalities. Soft tissues appear unremarkable. IMPRESSION: Clear lungs, without focal infiltrates. Dictated by: Delano Carey M.D. on 02/07/2020 at 16:45 Approved by: Delano Carey M.D. on 02/07/2020 at 16:45
== END ==
PROVIDERS: PCP Student in an Organized Health Care Education/Training Program; Referring Provider Family Medicine; Visit Provider Family Medicine
DX: J20.9 Acute bronchitis, unspecified (principal); J45.41 Moderate persistent asthma with (acute) exacerbation; Z11.59 Encounter for screening for other viral diseases
CPT/HCPCS: 71046; 87635

== ENCOUNTER → 2021-05-29 13:58 | Outpatient (CLI) | payer OTHER, MEDICAID, SELFPAY | PROVIDERS: PCP Student in an Organized Health Care Education/Training Program; Referring Provider Obstetrics & Gynecology Gynecologic Oncology; Visit Provider Obstetrics & Gynecology Gynecologic Oncology | DX: R19.00 Intra-abdominal and pelvic swelling, mass and lump, unspecified site (principal); Z53.20 Procedure and treatment not carried out because of patient's decision for unspecified reasons ==

== ENCOUNTER → 2021-06-08 08:55 | Outpatient (CLI) | payer OTHER, MEDICAID, SELFPAY ==
--- NOTE | 2021-06-08 | DI.MRI.S_ITS ---
PROCEDURE: MR ABDOME PELVIS WWO CON INDICATIONS: THORACIC LUMBAR JUNCTION FOCUS TECHNIQUE: Coronal HASTE, axial 2D FLASH in- and [id number]; axial breath-hold T2 FSE; dynamic axial VIBE during IV gadolinium administration; postgadolinium coronal VIBE or 2D FLASH with fat saturation from the hepatic dome to the ischial tuberosities. COMPARISON: [facility], US, US PELVIC COMPLETE WITH TRANSVAGINAL, 10/02/2020, 15:14. [facility], CT, CT ABDOMEN PELVIS WITH CONTRAST, 10/02/2020, 13:09. FINDINGS: Image quality: Good. Lung bases: No pleural effusion. Solid organs: Liver: No focal lesion. Gallbladder: Not distended. Bile ducts: No dilatation. Pancreas: No peripancreatic fluid collection. Spleen: No splenomegaly. Adrenal glands: No nodule. Kidneys: No hydronephrosis. Nodes and vessels: No aortic aneurysm. No adenopathy. Bowel and peritoneum: No dilated loops of bowel. Pelvis: Cystic structure in the region of the right adnexa or superior to the right adnexa measuring 7.1 x 3.8 x 3.7 cm, (/18 and 38/17). On prior ultrasound 10/02/2020 this measured 7 x 3.7 x 3.1 cm. There is a mural nodule measuring 0.6 cm, (38/17) which demonstrates restricted diffusion, (43/64). There is a small calcifications seen on the prior CT. Small volume of free fluid in the pelvis. There is a fat density nodule in the pelvic cul-de-sac measuring 1.3 cm, (17/105). Anteverted uterus. IUD centered in the uterus. Suspect prior section scar. Small nabothian cysts. Endometrium measures 0.6 cm. Bones and soft tissues: No suspicious osseous lesion. IMPRESSION: 1. Superior right adnexal cystic lesion measuring 7.1 cm is similar in size to ultrasound from September 2020. Small mural nodule measuring 0.6 cm. This could represent a benign or malignant neoplasm. 2. No adenopathy. No metastatic disease demonstrated. 3. Small volume of free fluid in the pelvis. 4. Fatty nodule in the pelvic cul-de-sac measuring 1.3 cm. This has a benign appearance and could represent fat surrounded by free fluid or possibly a small dermoid cyst. Recommend gynecological consultation. Repeat pelvic ultrasound may be helpful. Dictated by: Darrius Brown M.D. on 06/08/2021 at 10:29 Approved by: Darrius Brown M.D. on 06/08/2021 at 10:59
== END ==
PROVIDERS: Referring Provider Obstetrics & Gynecology Gynecologic Oncology; Visit Provider Obstetrics & Gynecology Gynecologic Oncology
DX: N94.89 Other specified conditions associated with female genital organs and menstrual cycle (principal); R19.00 Intra-abdominal and pelvic swelling, mass and lump, unspecified site; R10.11 Right upper quadrant pain
CPT/HCPCS: 72197; 74183; A9579

== ENCOUNTER → 2021-11-15 09:03 | Outpatient (CLI) | payer OTHER, MEDICAID, SELFPAY ==
--- NOTE | 2021-11-15 09:05 | DI.CT.S_ITS ---
PROCEDURE: CT ABDOMEN PELVIS W CON INDICATIONS: Malignant neoplasm of appendix TECHNIQUE: After the administration of oral and intravenous contrast, axial sections were acquired from the lung bases to the pubic symphysis. Coronal and sagittal reformats were performed. For radiation dose reduction, the following was used: automated exposure control, adjustment of mA and/or kV according to patient size. COMPARISON:[facility], CT, CT ABDOMEN PELVIS WITH CONTRAST, 10/02/2020, 13:09. FINDINGS: Image quality: Excellent. Lung bases: Unremarkable. Heart: No significant findings. ABDOMEN: Liver: Unremarkable. Gallbladder: Unremarkable. Biliary ducts: Unremarkable. Pancreas: Unremarkable. Spleen: Unremarkable. Adrenal Glands: Unremarkable. Kidneys and Ureters: Unremarkable. Stomach and Bowel: Stomach, small bowel loops, and colon are unremarkable. The appendix is surgically absent. No suspicious soft tissue lesions within the surgical bed. Peritoneum: No abnormal intraperitoneal fluid. No free air. Ventral Wall: No hernia. A lobulated low-density 2.7 x 1.4 cm lesion is present within the right lower quadrant (series 3/image 60). Abdominal Nodes: No retroperitoneal or mesenteric adenopathy by size criteria. Vessels: Aorta and inferior vena cava are normal in size. PELVIS: Pelvic Organs: An IUD is present within the uterine fundus. The bilateral ovaries are unremarkable. Bladder: Unremarkable. Pelvic Nodes: No enlarged lymph nodes. Miscellaneous: No inguinal hernias are seen. Bones: Unremarkable. IMPRESSION: 1. No findings to suggest tumor recurrence at the cecum. 2. Lobulated low-density mass within the subcutaneous fat of the right lower quadrant. This is a new finding when compared with the study dated October 02, 2020. If the previous tumor produced mucin, tumor seeding and interval growth within 1 of the laparoscopic ports could be considered in the differential. Consider targeted ultrasound of this region to further characterize this finding and evaluate for possible biopsy. Dictated by: Fina Tavarez M.D. on 11/15/2021 at 15:12 Approved by: Fina Tavarez M.D. on 11/15/2021 at 15:16
== END ==
PROVIDERS: PCP Physician Assistant; Referring Provider Surgery Surgical Oncology; Visit Provider Surgery Surgical Oncology
DX: C18.1 Malignant neoplasm of appendix (principal); R93.5 Abnormal findings on diagnostic imaging of other abdominal regions, including retroperitoneum
CPT/HCPCS: 74177; Q9967